=== PATIENT | male | born 1960 | race Caucasian/White ===

== ENCOUNTER 2022-08-27 14:37 | Observation (INO) | payer OTHER ==
[2022-08-27 15:24] LABS: #Basophils 0.1 thou/uL (0.0-0.2); #Eosinphils 0.5 thou/uL (0.0-0.7); #Lymphocytes 2.9 thou/uL (1.20-3.40); #Monocytes 1.2 thou/uL (0.11-0.59); #Neutrophils 4.8 thou/uL (1.40-6.50); %Basophils 0.9 % (0.0-1.0); %Eosinophils 5.5 % (0.0-10.0); %Lymphocytes 30.1 % (21.0-51.0); %Monocytes 12.6 % (0.0-10.0); %Neutrophils 50.8 % (42.0-75.0); Hemoglobin 13.6 g/dL (14.0-18.0); Mean Corpuscular HGB CONC 32.5 g/dL (32.0-36.0); Mean Corpuscular Hemoglobin 30.6 pg (27.0-31.0); Mean Platelet Volume 7.1 fL (7.4-10.4); Platelet Count 338 10x3/uL (130-400); RBC Distribution Width 12.3 % (11.5-14.5); Red Blood Cell (RBC) Count 4.46 mill/uL (4.70-6.10); White Blood Cell (WBC) Count 9.5 10x3/uL (4.8-10.8)
[2022-08-27 15:47] LABS: ALT (SGPT) 13 U/L (8-55); AST (SGOT) 12 U/L (5-34); Albumin 3.8 g/dL (3.5-5.0); Alkaline Phosphatase 55 U/L (40-110); Anion Gap 10 mmol/L (10-20); BUN (Urea Nitrogen) 17 mg/dL (8.4-25.7); Bilirubin, Total 0.5 mg/dL (0.2-1.2); Calc. Creatinine Clearance 0 mL/min (70-130); Calcium 8.6 mg/dL (7.8-10.44); Carbon Dioxide 25 mmol/L (22-29); Chloride 107 mmol/L (98-107); Estimated GFR 99; Globulin 2.4 g/dL (2.4-3.5); Glucose 98 mg/dL (70-105); Lipase 46 U/L (8-78); Magnesium 2.2 mg/dL (1.6-2.6); Potassium 4.7 mmol/L (3.5-5.1); Protein, Total 6.2 g/dL (6.0-8.3); Sodium 137 mmol/L (136-145)
[2022-08-27 16:39] LABS: SARS-CoV-2 NAA Rapid Test Not Detected (NotDetected)
[2022-08-27 20:26] VITALS: BMI 29.0
[2022-08-27] MEDS ORDERED: Atorvastatin Calcium 40 MG TAB PO SCH (21:00)
[2022-08-27] MEDS ORDERED: Famotidine 20 MG TAB ONE (21:33)
[2022-08-27] MEDS: Famotidine 20 MG TAB PO SCH (21:35)
[2022-08-27 21:46] LABS: Troponin I Less than 0.010 ng/mL (< 0.028)
[2022-08-27] MEDS ORDERED: Nitroglycerin 2% Ointment 1 INCH/1 GM Packet ONE (23:15)
[2022-08-27] MEDS ORDERED: diphenhydrAMINE 12.5 MG/5 ML UDCUP PO SCH (23:15)
[2022-08-27] MEDS ORDERED: diphenhydrAMINE 25 MG CAP ONE (23:15)
[2022-08-27] MEDS: Nitroglycerin 2% Ointment 1 INCH/1 GM Packet TOP SCH (23:23)
[2022-08-28 00:23] LABS: Troponin I 0.014 ng/mL (< 0.028)
[2022-08-28] MEDS: Nitroglycerin 2% Ointment 1 INCH/1 GM Packet TOP SCH (06:44)
[2022-08-28] MEDS ORDERED: Carvedilol 6.25 MG TAB PO SCH (08:00)
[2022-08-28] MEDS ORDERED: Aspirin Chewable 81 MG TAB ONE (08:21)
[2022-08-28] MEDS ORDERED: Clopidogrel Bisulfate 75 MG TAB ONE (08:21)
[2022-08-28] MEDS ORDERED: Famotidine 20 MG TAB ONE (08:21)
[2022-08-28] MEDS: Famotidine 20 MG TAB PO SCH (08:24)
[2022-08-28] MEDS ORDERED: Aspirin 81 mg Enteric Coated Tablet PO SCH (09:00)
[2022-08-28] MEDS ORDERED: DULoxetine 60 MG CAP PO SCH (09:00)
[2022-08-28] MEDS ORDERED: Clopidogrel Bisulfate 75 MG TAB PO SCH (09:00)
[2022-08-28] MEDS ORDERED: Lisinopril 20 MG TAB PO SCH (09:00)
[2022-08-28] MEDS ORDERED: Sodium Chloride 0.9% 1,000 ML IV SCH (09:30)
[2022-08-28 10:27] VITALS: BP 130/82; TEMP 98
== END 2022-08-28 12:54 ==
LOC: ERS 14:37 → EEVIPCON 18:29 → ERHOLD 18:29
PROVIDERS: ADMIT Internal Medicine; ATTEND Physician Assistant Medical
DX: R07.9 Chest pain, unspecified (principal); I11.0 Hypertensive heart disease with heart failure; I50.9 Heart failure, unspecified; L40.50 Arthropathic psoriasis, unspecified; E78.00 Pure hypercholesterolemia, unspecified; I25.2 Old myocardial infarction; I25.10 Atherosclerotic heart disease of native coronary artery without angina pectoris; F12.11 Cannabis abuse, in remission; Z87.820 Personal history of traumatic brain injury; Z79.02 Long term (current) use of antithrombotics/antiplatelets; Z79.82 Long term (current) use of aspirin; Z79.899 Other long term (current) drug therapy; Z95.5 Presence of coronary angioplasty implant and graft; Z20.822 Contact with and (suspected) exposure to COVID-19
CPT/HCPCS: 36415; 71045; 80053; 83690; 83735; 83880; 84484; 85025; 93005; J7050; Q0163; U0002